=== PATIENT | female | born 1990 | race Caucasian/White ===

== ENCOUNTER 2020-07-04 10:15 | Emergency (ER) | payer OTHER ==
[~2020-07-04] VITALS: Ht 170.2 cm; Wt 68.0 kg
[2020-07-04] MEDS ORDERED: KETO10TA2 PO (17:28)
== END 2020-07-04 18:20 | disposition home or self-care (01) ==
LOC: ER 10:15
DX: R10.2 Pelvic and perineal pain (principal); R10.31 Right lower quadrant pain